=== PATIENT | female | born 1940 | race Caucasian/White ===

== ENCOUNTER 2019-09-30 05:51 | Inpatient (IN) | payer MEDICARE, BC, OTHER, SELFPAY ==
[2019-09-20 12:39] VITALS: BMI 45.3
[2019-09-30] VITALS (15 sets, daily range): BP systolic 110–167; BP diastolic 45–94; PULSE 69–93; RESP 11–21; TEMP 35.8–36.9; O2SAT 88–96; BMI 44.4
--- NOTE | 2019-09-30 06:59 | DI.RAD.S_ITS ---
PROCEDURE: XR KNEE RT 1TO2V INDICATIONS: post op TECHNIQUE: 2 view(s) of the knee acquired. COMPARISON: None. FINDINGS: Bones: Patient is status post knee joint arthroplasty. Hardware components are in expected positions. Visualized bony structures are intact. Soft tissues: Overlying postoperative changes are noted. IMPRESSION: Normal postoperative alignment after right total knee arthroplasty. Dictated by: Jacques Frost M.D. on 09/30/2019 at 10:57 Approved by: Jacques Frost M.D. on 09/30/2019 at 10:57
[2019-09-30] MEDS: LACTATED RINGERS 1,000 ML 42 ML IV (07:30)
[2019-09-30] MEDS: PREGABALIN 75 MG CAPSULE PO (07:34)
[2019-09-30] MEDS: ACETAMINOPHEN 325 MG TABLET 975 MG PO (07:34)
[2019-09-30] MEDS: MELOXICAM 7.5 MG TABLET 15 MG PO (07:35)
[2019-09-30] MEDS: CEFAZOLIN 2 GM/100 ML FROZ.PIGGY IV (07:55)
--- NOTE | 2019-09-30 08:00 | PM.PREOP ---
Pre-operative Note Interval Note History & Physical reviewed/Exam performed by Physician: Yes Changes to H&P: No
--- NOTE | 2019-09-30 08:01 | PM.OP.1 ---
Operative Date/Time/Diagnoses Date of procedure: 09/30/19 Time of procedure: 09:50 Pre-op diagnosis: Right knee osteoarthritis Post-op diagnosis: same Procedure & Clinicians Procedure: Right total knee replacement Same procedure as scheduled: Yes Indications: The patient has had progressively worsening right knee pain with radiographic changes consistent with arthritis. Non-operative management has failed and the patient has requested total knee replacement. The risks, benefits and alternatives to surgery were discussed with the patient prior to proceeding. Risks discussed included, but were not limited to, failure to relieve pain, stiffness, infection, nerve damage, deep venous thrombosis, pulmonary embolism, stroke, coma, heart attack, permanent paralysis and , as well as the potential need for eventual revision of the prosthetic. Surgeon: Phil Sloan Chief Of Internal Medicine: Reema Hernández Click Yes if Unassisted: No Anesthesia Type: General, Spinal and Local Operative Notes Findings: Severe tricompartmental osteoarthritis Closure Type: primary Specimen(s): none sent Prosthetic devices, grafts, tissues, transplants, or devices: Implants used in this procedure were manufactured by the [employer] and included the BCS II Journey total knee replacement with a size 5 right cobalt chromium femoral component, a size 4 right non porous tibial base plate, a 9 mm cross-linked polyethylene tibial insert and a 35 mm oval Evy II patella. Applied: implant(s) Estimated Blood Loss (mL): 25 Blood products transfused: none Tourniquet time (min): 55 Procedure in detail: The patient was seen in the pre-operative area, where the patient identified the right knee as the operative site and this was marked with my initials. The patient received pre-operative antibiotics, and was taken to the operating room and placed on the operative table in the supine position. After satisfactory anesthesia, a night time babysitter out was performed. The right leg was encircled with a tourniquet about the proximal thigh, and the leg was prepared from the toes to the tourniquet with ChloroPrep in the usual fashion and draped through sterile drapes. The leg was elevated and exsanguinated with Eschmark bandage and the tourniquet inflated to 250 mmHg pressure. The knee was approached through an approximately 18 cm incision centered over the patella and carried into the knee through a medial parapatellar arthrotomy. The anterior osteophytes and soft tissues were removed. The rotational landmarks of La Luz's line and the transepicondylar axis were marked on the femur with electrocautery, and intramedullary guide holes for the femur and tibia were created. The distal femoral cut was made in 6 degrees of valgus using the intramedullary guide at the primary cut setting. The proximal tibial cut was then made using the intramedullary guide, taking 9 mm of bone off the less involved side. The extension gap was checked and the rotation of the femoral component confirmed with the gap balancing system. The anterior, posterior and chamfer cuts were then made. The posterior osteophytes and soft tissues were then removed. The posterior capsule was injected with part of a mixture of 60 ml 0.25% Marcaine mixed with 20 ml Exparel and 4 mg of morphine for post-operative pain control. The remainder of this mixture was injected into the capsule and subcutaneous tissues during cement curing. The tibia was prepared with the rotation set by an extramedullary guide. Trial tibial and femoral components were then placed and the intercondylar notch cut through the femoral trial. Range of motion was 0-135 degrees, with good stability throughout the range. The patella was then cut to accommodate the patellar prosthetic. There was no need for a lateral release. The trials were then removed, and the femoral hole plugged with a bone plug. The bone was prepared with pulsatile lavage, and dried with a sponge. Cement was applied and the final prosthetics placed. Excess cement was removed during and after cement curing. After confirming there was no extruded cement posteriorly, the final tibial insert was placed. The knee was copiously irrigated and the tourniquet deflated. Hemostasis was obtained. The capsule was closed with interrupted # 2 polyester suture. The subcutaneous layer was closed with 3-0 Vicryl, and the skin with a running 3-0 V-Lock suture and SteriStrips. An Aquacel Ag dressing was applied and the patient was taken to recovery having tolerated the procedure well. Complications: none Post-operative Condition: stable Disposition: PACU Plan for aftercare: The patient will be maintained on a standard total knee replacement protocol with weight bearing as tolerated. The patient will receive aspirin and sequential compression devices for DVT prophylaxis. The patient will be discharged home when safe for the home environment.
--- NOTE | 2019-09-30 08:42 | SUR.OPER ---
Supine on padded OR bed. Pillow under head, arms secured on padded armboards <90 degree abduction. Safety belt across torso. Non-operative leg secured with tape over blanket over lower leg. Operative leg secured in DeMayo/Marques positioner. Foam padded brace at thigh of operative leg.
[2019-09-30] MEDS: MORPHINE 4 MG/ML INJ INJ (08:47)
[2019-09-30] MEDS: BUPIVACAINE 0.25% W/ EPI (PF) 10 ML VIAL 60 ML INJ (08:47)
[2019-09-30] MEDS: BUPIVACAINE LIPOSOME 266 MG/20 ML VIAL INJ (08:48)
[2019-09-30] MEDS: LACTATED RINGERS 1,000 ML 125 ML IV (11:08)
--- NOTE | 2019-09-30 14:25 | PT.IIE ---
Current Diagnoses Unilateral primary osteoarthritis, right knee (09/30/19) Surgery Performed Operation Date: 09/30/19 07:45 Actual Procedures p Total Knee Arthroplasty(Right) - Phil Sloan MD Surgical History (Last Updated 09/20/19 @ 13:[address] RN) H/O: hysterectomy (Acute) History of colostomy (Acute ~12/2014) Hx of cholecystectomy (Acute) Medical History (Last Updated 09/20/19 @ 13:[address] RN) Anxiety (Acute) CAD (coronary artery disease) (Acute) Colon polyps (Acute) COPD (chronic obstructive pulmonary disease) (Acute) CVA (cerebral vascular accident) (Acute ~1976) Cyst (Acute ~1958) Depression (Acute) Diverticulitis of intestine with perforation (Acute) GERD (gastroesophageal reflux disease) (Acute) Glaucoma (Acute) H/O coronary angiogram (Acute) HLD (hyperlipidemia) (Acute) HTN (hypertension) (Acute) Hypothyroid (Acute) IBS (irritable bowel syndrome) (Acute) Myocardial infarction (Acute ~2004) Osteoarthritis (Acute) Pulmonary embolism, bilateral (Acute ~12/2014) RLS (restless legs syndrome) (Acute) Physical Therapy Inpatient Evaluation/Re-Eval M1 PT/OT-IP Prior Functional Status Start: 09/30/19 12:42 Freq: NEEDED Status: Active Protocol: Document 09/30/19 13:54 AW (Rec: 09/30/19 14:25 AW [id number]) Medical Review Prior Functional Status Medical History Reviewed Yes Communication WNL Mobility and Gait Independent without assistive device but with limited distance (1/2 block or less) secondary to shortness of breath and pain. Activities of Daily Living and IADL's Pt used a long-handled shoe horn for shoes and her helped her with socks. She was otherwise independent with dressing, showering, toileting. Social History Household Members spouse Living Arrangements House Number of Floors (Floors) Two Floors Number of Stairs To Enter/Railing? 6 threshhold to enter. Pt stays on the entry writer with no need to access the second floor. Home Environment Standard Height Toilet,Walk in Shower Home Equipment Front Wheel Walker,Straight Cane,Raised Toilet Seat w/ Armrests,Long Handled Sponge Employment Status Retired Additional Social History Comment Pt lives with her spouse, Usman, who is available 03/04 and able to provide assistance. Her daughter, Gaye, also lives nearby and checks in frequently. M2 PT-IP Current Condition Start: 09/30/19 12:42 Freq: NEEDED Status: Active Protocol: Document 09/30/19 13:54 AW (Rec: 09/30/19 14:25 AW [id number]) Physical Therapy Current Condition Current Condition Evaluation Date 09/30/19 Treatment Diagnosis s/p R TKA Onset Date 09/30/19 Precautions Other Precautions history of PE, DVT Weight Bearing Status Weight Bearing Status Weight Bear as Tolerated M3 PT-IP Subjective Start: 09/30/19 12:42 Freq: NEEDED Status: Active Protocol: Document 09/30/19 13:54 AW (Rec: 09/30/19 14:25 AW [id number]) Subjective Physical Therapy Visit Type Visit Start Time 12:30 Visit Stop Time 13:51 Total Visit Minutes 36 Notes Split visit due to nursing request to assist with first transfer. Number of BUS AIDE Visits 0 Physical Therapy Visit Comments Patient Comments Pt willing to work with therapy. Patient Goals Pt hopes to discharge home with spouse assist Therapy Pain Assessment Pain When Pain Assessed During Mobility Pain Present Pain Present Pain Reported Location right knee Intensity 7 Scale Used 3/10 at rest; 7/10 with mobility Pain Management Techniques Apply Cold,Re-positioning, Timing of Activity with Medications M4 PT-IP Mobility and Gait Start: 09/30/19 12:42 Freq: NEEDED Status: Active Protocol: Document 09/30/19 13:54 AW (Rec: 09/30/19 14:25 AW [id number]) PT-Bed Mobility Assessment Supine to Sit Supine to Sit Standby Assistance Sit to Supine Sit to Supine Standby Assistance Scooting Scooting to Edge of Bed Standby Assistance PT-Transfer Assessment Sit to and From Stand Sit to and from Stand Contact Guard Assistance,1 Person Assistance,Use of Upper Extremities Equipment Transfer Assistive Device Gait Belt,Front Wheeled Walker Orthotic/Prosthetic Devices or Brace: No Transfers Transfer Destination Bed,Chair Transfer Technique ambulated with FWW Transfer Ability Level of Assist Contact Guard Assistance Comments Mobility Comments On initial contact, pt had decreased AROM of her right ankle and great toe along with associated dull sensation in the same distribution. She was able to move her legs out of bed independently and complete supine to sit from flat bed SBA. She stood with FWW CGA, exiting the bed to her right side and pivot transferred to [facility]. On second contact, pt exited the bed same direction and walked around the bed to the chair set up by the window CGA. She reported lightheadedness and a heavy sensation in her right leg. She transferred to the chair CGA for assessment of BP as noted below. Once symptoms subsided, she ambulated back to the left side of the bed with FWW CGA and completed sit to supine SBA. Pt was repositioned in the bed with SCD's to bilateral calves, supplemental O2 via NC, bed alarm on for safety, and call light within reach. Pt asked to speak with the RN regarding pain medication which was communicated to the NAC. Supine prior to activity: BP 129/74 HR 95 After 20 feet ambulation: BP 144/123 HR 111 Upon return to bed: BP 137/79 HR 98 Gait Assessment Gait Gait Assistance Required: Contact Guard Assist Distance (Feet) 20 Able to Maintain Weight Bearing Status Yes During Gait Assistive Devices Assistive Device Gait Belt,Front Wheeled Walker Orthotic/Prosthetic Devices or Brace: No Gait Deviations General Gait Pattern Antalgic,Decreased Stride Length,Decreased Feet Clearance,Flexed Trunk,Wide Based Gait Factors Limiting Gait Function Factors Limiting Gait Function Decreased Activity Tolerance, Decreased Sensation,Decreased Strength,Limited Range of Motion,Pain,Poor Balance Comments Gait Comments Pt ambulated in the room 20 feet + 10 feet using FWW CGA. She reported heavy feeling in her right leg and presented with right foot slap. She was also observed to become short of breath easily with activity . Stair Climbing Assessment Comments Stair Climbing Comments Not assessed due to safety concerns. PT-Balance Assessment Sitting Balance and Reactions Static Sitting Balance Ability Good Dynamic Sitting Balance Ability Good Standing Balance and Reactions Static Standing Balance Ability Fair Dynamic Standing Balance Ability Fair Device Used FWW M5 PT-IP Objective Assessments Start: 09/30/19 12:42 Freq: NEEDED Status: Active Protocol: Document 09/30/19 13:54 AW (Rec: 09/30/19 14:25 AW [id number]) Orientation Orientation/Cognition Level of Alertness Alert Orientation Name,Birthday,Day of Week, Place,Situation Language Function Ability No Deficits Noted Safety Awareness Understands Safety Issues Memory Description No Deficits Noted Gross Range of Motion Upper Extremity ROM Assessment Within Functional Limits Lower Extremity ROM Assessment Right Impaired Strength Upper Extremity Strength Assessment Within Functional Limits Lower Extremity Strength Assessment Bilaterally Impaired Hip B 4/5 Knee L4/5; R 3+/5 Ankle L 4/5; R 3-/5 Coordination Assessment Gross Coordination Gross Coordination WNL Sensation Assessment Sensation Gross Sensation Right LE Impaired Light Touch Impaired Sensation Description Numbness Comments Sensation Comments Pt with dull light touch sensation of R distal leg, ankle, and foot. M6 PT-IP Treatment Start: 09/30/19 12:42 Freq: NEEDED Status: Active Protocol: Document 09/30/19 13:54 AW (Rec: 09/30/19 14:25 AW [id number]) Physical Therapy Treatment Exercises Exercises Ankle Pumps,Quad Sets,Heel Slides,Passive Knee Extension Hang Education Education Provided Precautions,Weight Bearing Status,Post-Op Packet,Safety Other Treatments Other Treatment Performed Provided education on role of PT, plan of care, post-op exercises, weightbearing status, and safe use of FWW. M7 PT-IP Assessment and Plan Start: 09/30/19 12:42 Freq: NEEDED Status: Active Protocol: Document 09/30/19 13:54 AW (Rec: 09/30/19 14:25 AW [id number]) PT Summary Assessment and Plan Potential Rehabilitation Potential Good Status of Condition at Evaluation Evolving Summary Impairments Pain,ROM,Strength,Balance, Sensation,Transfers,Gait, Activity Tolerance Assessment Summary Jenny is an 79 yo woman seen for PT evaluation on POD0 following R TKA. At baseline, she mobilizes without assistive device but admits to limited distance (1/2 block) due to shortness of breath and knee pain. Her helps her with some lower body dressing tasks but she is otherwise independent with ADLs. On evaluation, Jenny required no more than CGA for all mobilities and was safe with FWW. PT anticipates she will meet the functional goals of this plan of care and be appropriate for discharge to home with spouse assist and outpatient PT once medically cleared. Goals Bed Mobility Goal Independent Transfer Goal Independent,Front Wheeled Walker Gait Goal Independent,Front Wheel Walker Gait Distance 150 Other Goals - up/down platform step with FWW CGA for safe entry to home . Days to Meet Goals 2 Frequency of Treatment Frequency Of Treatment Twice a Day Treatment Plan Physical Therapy Treatment Plan Bed Mobility Training,Transfer Training,Gait Training, Therapeutic Exercise,Balance Retraining,Post Op Education, Discharge Planning,Hot or Cold Pack,Neuromuscular Re-ed, Manual Therapy Other Recommendations and Next Treatment progress gait distance; assess Focus safety with platform step; review ther ex and weightbearing status Recommendations To Nursing Amount of Assist Needed 1 Person Assist Discharge Recommendations PT Discharge Recommendations Home with Assistance, Outpatient PT
[2019-09-30] MEDS: ACETAMINOPHEN 325 MG TABLET 650 MG PO ×2 (14:43→21:30)
[2019-09-30] MEDS: OXYCODONE IR 5 MG TABLET PO ×2 (15:24→21:31)
[2019-09-30] MEDS: ATORVASTATIN 20 MG TABLET PO (19:18)
[2019-09-30] MEDS: BUSPIRONE 5 MG TABLET 20 MG PO (19:19)
[2019-09-30] MEDS: VALSARTAN 80 MG TABLET 40 MG PO (19:20)
[2019-09-30] MEDS: PANTOPRAZOLE 20 MG TABLET PO (19:25)
[2019-09-30] MEDS: RIVAROXABAN 10 MG TABLET 20 MG PO (19:25)
[2019-09-30] MEDS: METOPROLOL IR 25 MG TABLET PO (21:30)
[2019-09-30] MEDS: TRAVOPROST OPHTH DROPS 1 DROPS EYE-BOTH (21:31)
[2019-09-30] MEDS: DOCUSATE 100 MG CAPSULE PO (21:31)
[2019-09-30] MEDS: TIMOLOL 0.5% OPHTH 1 DROPS EYE-BOTH (21:32)
[2019-10-01] MEDS: OXYCODONE IR 5 MG TABLET PO ×8 (00:44→21:53)
[2019-10-01] MEDS: LACTATED RINGERS 1,000 ML 125 ML IV (02:44)
--- NOTE | 2019-10-01 05:27 | PC.NURSE ---
Pt alert and oriented x4. 1PA to BSC. Pain controlled with PRN oxy. Pt refusing scheduled ibuprofen. Voiding to BSC without issues. Right knee post op incision with aquacell dressing clean dry and intact. No complaints at this time.
[2019-10-01 05:30] VITALS: BP 124/71; PULSE 71; RESP 12; TEMP 36.5; O2SAT 96
[2019-10-01 07:09] LABS: Hematocrit 35.6 % (36-46); Hemoglobin 11.9 g/dL (12.0-16.0)
--- NOTE | 2019-10-01 07:43 | PM.PNPO.1 ---
Subjective Subjective Date Patient Seen: 10/01/19 Time Patient Seen: 07:43 Interval history: The patient reports good pain control except for when she tries to weightbear when the pain becomes significant. Exam Vital Signs (past 8 hours): - 10/01/19 05:30 Temperature 97.7 F Pulse Rate 71 Respiratory Rate 12 Blood Pressure 124/71 Pulse Oximetry 96 Oxygen Delivery Method Nasal Cannula Oxygen Flow Rate 2.5 Narrative Exam Narrative: Right knee wound is dressed with no drainage on the bandage. Calf is soft. Light touch and motion are intact in the right lower extremity. Objective Labs Result Diagrams: 10/01/19 06:55 Labs: Laboratory Results - last 24 hr 10/01/19 06:55 Hgb 11.9 L Hct 35.6 L Assessment & Plan Post-op Postoperative Procedures: Procedures Operation Date: 09/30/19 07:45 Actual Procedures Side Surgeon p Total Knee Arthroplasty Right Phil Sloan MD Postoperative day: 1 Postoperative status: doing well and anemia Postoperative status narrative: The patient is stable postop day 1 status post right total knee replacement. She does have a mild post hemorrhagic anemia as expected. She has a history of a previous blood clot and will be restarted on her Xarelto. She is refusing to use ibuprofen because of the Xarelto. She is in poor general physical condition and obese and will need significant therapy prior to discharge. Postoperative plan: routine post-op care and ambulate Postoperative plan narrative: We will continue physical therapy to work on getting her ready to go home. I anticipate her discharge potentially tomorrow but likely in 2 days. As noted above she will be on Xarelto which we will use for both her prior clot and as DVT prophylaxis. I have stopped the ibuprofen. Her anemia is not significant enough to require transfusion. Time Spent With Patient Time with patient: less than 15 minutes
[2019-10-01] MEDS: TIMOLOL 0.5% OPHTH 1 DROPS EYE-BOTH ×2 (09:02→21:54)
[2019-10-01] MEDS: DOCUSATE 100 MG CAPSULE PO ×2 (09:04→21:51)
[2019-10-01] MEDS: ACETAMINOPHEN 325 MG TABLET 650 MG PO ×3 (09:04→21:52)
[2019-10-01] MEDS: POLYETHYLENE GLYCOL 3350 17 GM POWD.PACK PO (09:05)
[2019-10-01] MEDS: METOPROLOL IR 25 MG TABLET PO ×2 (09:05→21:51)
[2019-10-01] MEDS: LEVOTHYROXINE 50 MCG TABLET PO (09:05)
[2019-10-01] MEDS: ESCITALOPRAM 10 MG TABLET 20 MG PO (09:08)
[2019-10-01 09:11] VITALS: O2SAT 96
[2019-10-01] MEDS: BUSPIRONE 5 MG TABLET 10 MG PO (09:17)
--- NOTE | 2019-10-01 09:57 | PC.NURSE ---
Addendum entered by Gladys Wolf R.N. 10/01/19 15:28: pt states she normally has BM every 3 days at home and takes a probiotic at home. Evening Rn to pass on non-urgent to have a probiotic ordered and Vitamin D3 4,000 IU OD as pt takes this at home and requested to have reordered, Okay with not having today. Original Note: Day Shift- Pt A&OX4, able to make needs known using call light. OOB with 1PA using walker, ambulated fair to BSC then to chair around 0920. Voiding qs, no flatus passed yet post op. Right knee aquacel dressing CDI, scant spot shadowing to distal end of dressing, librado wrap on. CMS+, pt does report causing right knee pain when performing ankle pump exercise using right ankle. Pt reports 1/10 aching pain to right knee with rest and aching, sharp 7-8/10 pain with movement. Pain settles when pt in resting position. Pain management plan discussed. reported to Dr. Sloan this AM that pt wasn't taking scheduled Ibuprofen, Dr. Sloan Discontinued Ibuprofen. O2 NC removed, O2 sat level 90-93% on RA, pt states she has borderline COPD, This racebook writer did notice pt having audible expiratory wheeze with pursed lip breathing after ambulating from BSC on right side of bed over to chair on left side of bed. O2 sat 91% on RA.
--- NOTE | 2019-10-01 10:38 | CM.DANOTE ---
DCP/Assessment: Reviewed chart. Patient is a 79yr old female admitted to [facility] for right TKA peformed on 10-01-[address] Sloan. PCP not listed. Primary payor is 1)Medicare 2)[facility]. Met with patient and spouse explained CM/SW role. Patient reports that she plans to go home when medically stable. Spouse/Ashvin at bedside and confirms plan. Therapy following patient. Patient has all needed DME and outpatient therapy appointment scheduled. There are no identified d/c planning needs. P: Home when stable. NENA Meade Discharge Planning/Care Management CM Discharge Assessment Start: 10/01/19 10:36 Freq: Status: Active Protocol: Document 10/01/19 10:36 KJS (Rec: 10/01/19 10:38 KJS [id number]) Discharge Planning Assessment Assigned Sterilization Tech NENA Meade Contact Information Ashvin Moseley (spouse) Advance Directives? No History Provided By Patient,Medical Record Prior Living Arrangements House Household Members spouse Type of transporation used prior to Relies on Others admit Independent with ADL's No Is patient alert and oriented? Yes Caregiver for Another No DME Already Rented / Owned FWW / Walker,Bedside Commode Patient/Family Preference OP PT Therapy Discharge Plan Home Transportation Arrangement Family to provide transport home. Whiteboard Updated in Patient Room with Yes name and ext. # of Sterilization Tech Review Status In Process Next Review Type Continued Stay Review Pre-Anesthesia Assessment Start: 09/20/19 12:38 Freq: Status: Complete Protocol: Document 09/20/19 12:39 CAB (Rec: 09/20/19 14:00 CAB [id number]) Pre-Anesthesia Assessment PAC Comment Per , PCP, Cardiology clearance completed over 3 weeks ago, surgeon has everything. Surgeon requesting anesthesia review. Left message for [facility] to fax over records for review Patient Information Reviewed Via Phone Assessment Assessment Completed With Spouse Comment Pt gave verbal approval for spouse to complete PAC Primary Care Provider Cosme Beckwith Medical Clearance Received Yes Seen Specialist in Last 12 Months Yes Specialist Seen Glass Mechanic,Orthopedist Primary Language Georgian Windows Systems Engineer Required No Height 152.4 cm Weight 105.233 kg Body Mass Index (BMI) 45.3 Hearing Ability Normal Visual Assist Magnifying Glass Dentition Type Teeth, Natural Present,Dental Implants Barriers to Learning None Other Aids No Hx Anesthesia Reactions No Hx Family Anesthesia Reaction No Hx Malignant Hyperthermia No Hx Blood Transfusions Yes: unsure, thinks w/ perforated diverticulitis 2014 Anesthesia Review Requested No alcohol intake former Alcohol Intake Frequency Other: Stopped r/t medications Smoking Status Former smoker Tobacco type cigarettes how long ago did patient quit smoking Quit 1977 Substance Use Type does not use Pain Present Pain Reported Musculoskeletal Symptoms Abnormal Gait,Difficulty Walking,Joint Pain History of Falling (Recent or History of No ) Patient is completely paralyzed or No completely immobile Mental Status Oriented to own ability Is patient on oxygen? No Does patient have RYAN/SOB No Hx Sleep Apnea No Currently Taking a Beta Natasha Yes: Metoprolol Can You Climb a Flight of Stairs Without No SOB Hx Chest Pain No Hx SOB Yes: 2014 r/t PE, none since Hx Syncope or Dizziness No Anti-Coagulant Therapy Yes: Xarelto-advised to hold 3 day prior per PCP Has a Glass Mechanic Yes: Dr. Hudson Cardiac Testing Yes: Echo Hx Pacemaker/ICD No Pacemaker Rep Required? No Cardiac Clearance Received Yes Diet Type At Home Regular dysphagia Yes: Occasionally w/solids Bladder Pattern Frequency Urinary Catheter Present No Hx Urinary Self Catheterization No Diabetes No Patient No Lactating No Hx Drug Resistant Organism No Presence of External or Internal Medical No Devices Have you traveled outside the [place] in the last 30 days? Marital Status Lives With spouse Prior Living Arrangements House Number of Floors (Floors) Two Floors Support System Spouse Does the Patient Have Assistance After Yes Surgery Patient Discharge Plan Description Return Home Comment Pt advised 3 day length of stay per surgeon Advance Directives? No
--- NOTE | 2019-10-01 10:58 | PT.IPTN ---
Current Diagnoses Unilateral primary osteoarthritis, right knee (09/30/19) Surgery Performed Operation Date: 09/30/19 07:45 Actual Procedures p Total Knee Arthroplasty(Right) - Phil Sloan MD Physical Therapy Treatment Note M2 PT-IP Current Condition Start: 09/30/19 12:42 Freq: NEEDED Status: Active Protocol: Document 09/30/19 13:54 AW (Rec: 09/30/19 14:25 AW [id number]) Physical Therapy Current Condition Current Condition Evaluation Date 09/30/19 Treatment Diagnosis s/p R TKA Onset Date 09/30/19 Precautions Other Precautions history of PE, DVT Weight Bearing Status Weight Bearing Status Weight Bear as Tolerated M3 PT-IP Subjective Start: 09/30/19 12:42 Freq: NEEDED Status: Active Protocol: Document 10/01/19 10:58 CLB (Rec: 10/01/19 13:35 CLB [id number]) Subjective Physical Therapy Visit Type Type Treatment Note Visit Start Time 10:58 Visit Stop Time 11:39 Total Visit Minutes 41 Number of PRESSURE DISPATCHER Visits 1 Physical Therapy Visit Comments Patient Comments Pt willing to work with therapy. Patient Goals Pt hopes to discharge home with spouse assist Therapy Pain Assessment Pain When Pain Assessed During Mobility Pain Present Pain Present Pain Reported Location right knee Intensity 5 Scale Used Numeric (1 - 10) Pain Management Techniques Apply Cold,Re-positioning, Timing of Activity with Medications M4 PT-IP Mobility and Gait Start: 09/30/19 12:42 Freq: NEEDED Status: Active Protocol: Document 10/01/19 10:58 CLB (Rec: 10/01/19 13:35 CLB [id number]) PT-Bed Mobility Assessment Supine to Sit Supine to Sit Standby Assistance Sit to Supine Sit to Supine Standby Assistance Scooting Scooting to Edge of Bed Standby Assistance PT-Transfer Assessment Sit to and From Stand Sit to and from Stand Contact Guard Assistance,1 Person Assistance,Use of Upper Extremities Equipment Transfer Assistive Device Gait Belt,Front Wheeled Walker Orthotic/Prosthetic Devices or Brace: No Transfers Transfer Destination Bed,Chair,Toilet Transfer Technique ambulated with FWW Transfer Ability Level of Assist Contact Guard Assistance Comments Mobility Comments Pt required SBA for bed mobility to EOB, pt was able to straighten, lift and control RLE OOB. Pt required CGA for sit<>stand. Pt able to stand at sink to wash hands with good standing balance and SBA. Pt able to perform own pericare after use of toilet. CG training with Usman with him providing pt CGA for sit<>stand from bed and toilet . Pt's provide appropriate asssit and cues for hand placement. Pt left in chair with all needs within reach and present. Gait Assessment Gait Gait Assistance Required: Standby Assistance,Contact Guard Assist Distance (Feet) 40 Able to Maintain Weight Bearing Status Yes During Gait Assistive Devices Assistive Device Gait Belt,Front Wheeled Walker Orthotic/Prosthetic Devices or Brace: No Gait Deviations General Gait Pattern Antalgic,Decreased Stride Length,Decreased Feet Clearance,Flexed Trunk,Wide Based Gait Factors Limiting Gait Function Factors Limiting Gait Function Decreased Activity Tolerance, Decreased Sensation,Decreased Strength,Limited Range of Motion,Pain,Poor Balance Comments Gait Comments Pt ambulate from right side of bed to BR then to sink. After trialing stairs pt didn't feel as if she could ambulate further due to discomfort of RLE. Pt was able to ambulate SBA-CGA. Stair Climbing Assessment Evaluation Level of Assist On Stairs Contact Guard Assistance Devices Stair Climbing Assistive Devices Front Wheel Walker Technique/Endurance Stair Climbing Direction Ascend and Descend Stair Climbing Technique Step to Step Number of Steps Climbed 1 Stair Climbing Set # Repetitions (reps) 2 Comments Stair Climbing Comments Pt performed 1 platform step with therapist for demonstration. Pt able to assist pt on platform step up/down with CGA and cues for sequencing. PT-Balance Assessment Sitting Balance and Reactions Static Sitting Balance Ability Good Dynamic Sitting Balance Ability Good Standing Balance and Reactions Static Standing Balance Ability Fair Dynamic Standing Balance Ability Fair Device Used FWW M5 PT-IP Objective Assessments Start: 09/30/19 12:42 Freq: NEEDED Status: Active Protocol: Document 09/30/19 13:54 AW (Rec: 09/30/19 14:25 AW [id number]) Orientation Orientation/Cognition Level of Alertness Alert Orientation Name,Birthday,Day of Week, Place,Situation Language Function Ability No Deficits Noted Safety Awareness Understands Safety Issues Memory Description No Deficits Noted Gross Range of Motion Upper Extremity ROM Assessment Within Functional Limits Lower Extremity ROM Assessment Right Impaired Strength Upper Extremity Strength Assessment Within Functional Limits Lower Extremity Strength Assessment Bilaterally Impaired Hip B 4/5 Knee L4/5; R 3+/5 Ankle L 4/5; R 3-/5 Coordination Assessment Gross Coordination Gross Coordination WNL Sensation Assessment Sensation Gross Sensation Right LE Impaired Light Touch Impaired Sensation Description Numbness Comments Sensation Comments Pt with dull light touch sensation of R distal leg, ankle, and foot. M6 PT-IP Treatment Start: 09/30/19 12:42 Freq: NEEDED Status: Active Protocol: Document 10/01/19 10:58 CLB (Rec: 10/01/19 13:35 CLB [id number]) Physical Therapy Treatment Exercises Exercises Ankle Pumps,Gluteal Sets,Quad Sets,Heel Slides Education Education Provided Weight Bearing Status,Post-Op Packet,Safety M7 PT-IP Assessment and Plan Start: 09/30/19 12:42 Freq: NEEDED Status: Active Protocol: Document 10/01/19 10:58 CLB (Rec: 10/01/19 13:35 CLB [id number]) PT Summary Assessment and Plan Potential Rehabilitation Potential Good Status of Condition at Evaluation Evolving Summary Impairments Pain,ROM,Strength,Balance, Sensation,Transfers,Gait, Activity Tolerance Assessment Summary Pt improving with all mobility , is able to appropriately assist pt with CGA for sit<>stand, gait and stair climbing, pt's give cues for hand placement and feeling chair on back of legs before sitting. Pt will be able to return home with as he is able to assist pt. Goals Bed Mobility Goal Independent Transfer Goal Independent,Front Wheeled Walker Gait Goal Independent,Front Wheel Walker Gait Distance 150 Other Goals - up/down platform step with FWW CGA for safe entry to home . Days to Meet Goals 2 Frequency of Treatment Frequency Of Treatment Twice a Day Treatment Plan Physical Therapy Treatment Plan Bed Mobility Training,Transfer Training,Gait Training, Therapeutic Exercise,Balance Retraining,Post Op Education, Discharge Planning,Hot or Cold Pack,Neuromuscular Re-ed, Manual Therapy Other Recommendations and Next Treatment ther ex, gait. Focus Recommendations To Nursing Amount of Assist Needed 1 Person Assist Discharge Recommendations PT Discharge Recommendations Home with Assistance, Outpatient PT
[2019-10-01 12:00] VITALS: BP 119/53; PULSE 74; RESP 18; TEMP 36.9; O2SAT 92
--- NOTE | 2019-10-01 14:12 | PT.IPTN ---
Current Diagnoses Unilateral primary osteoarthritis, right knee (09/30/19) Surgery Performed Operation Date: 09/30/19 07:45 Actual Procedures p Total Knee Arthroplasty(Right) - Phil Slona MD Physical Therapy Treatment Note M2 PT-IP Current Condition Start: 09/30/19 12:42 Freq: NEEDED Status: Active Protocol: Document 09/30/19 13:54 AW (Rec: 09/30/19 14:25 AW [id number]) Physical Therapy Current Condition Current Condition Evaluation Date 09/30/19 Treatment Diagnosis s/p R TKA Onset Date 09/30/19 Precautions Other Precautions history of PE, DVT Weight Bearing Status Weight Bearing Status Weight Bear as Tolerated M3 PT-IP Subjective Start: 09/30/19 12:42 Freq: NEEDED Status: Active Protocol: Document 10/01/19 14:12 CLB (Rec: 10/01/19 15:14 CLB [id number]) Subjective Physical Therapy Visit Type Type Treatment Note Visit Start Time 14:12 Visit Stop Time 14:37 Total Visit Minutes 25 Number of CASING WORKER Visits 2 Physical Therapy Visit Comments Patient Comments Pt willing to work with therapy. Therapy Pain Assessment Pain When Pain Assessed During Mobility Pain Present Pain Present Pain Reported Location right knee Intensity 7 Scale Used Numeric (1 - 10) Pain Management Techniques Apply Cold,Re-positioning, Timing of Activity with Medications M4 PT-IP Mobility and Gait Start: 09/30/19 12:42 Freq: NEEDED Status: Active Protocol: Document 10/01/19 14:12 CLB (Rec: 10/01/19 15:14 CLB [id number]) PT-Bed Mobility Assessment Supine to Sit Supine to Sit Standby Assistance Sit to Supine Sit to Supine Standby Assistance Scooting Scooting to Edge of Bed Standby Assistance PT-Transfer Assessment Sit to and From Stand Sit to and from Stand Contact Guard Assistance,1 Person Assistance,Use of Upper Extremities Equipment Transfer Assistive Device Gait Belt,Front Wheeled Walker Transfers Transfer Destination Bed Transfer Technique ambulated with FWW Transfer Ability Level of Assist Contact Guard Assistance Comments Mobility Comments Pt is SBA for bed mobility, and CGA for sit-stand. Pt requires cues for hand placement on bed for safety. Pt left in bed with all needs within reach and SCD/s on. Gait Assessment Gait Gait Assistance Required: Standby Assistance,Contact Guard Assist Distance (Feet) 150 Able to Maintain Weight Bearing Status Yes During Gait Assistive Devices Assistive Device Gait Belt,Front Wheeled Walker Orthotic/Prosthetic Devices or Brace: No Gait Deviations General Gait Pattern Antalgic,Decreased Stride Length,Decreased Feet Clearance,Flexed Trunk,Wide Based Gait Factors Limiting Gait Function Factors Limiting Gait Function Decreased Activity Tolerance, Decreased Sensation,Decreased Strength,Limited Range of Motion,Pain,Poor Balance Comments Gait Comments Pt increased ambulation to ~ 150ft with FWW/CGA. Pt reports pain of 7/10 during ambulation using step through gait pattern with good foot clearance. M5 PT-IP Objective Assessments Start: 09/30/19 12:42 Freq: NEEDED Status: Active Protocol: Document 09/30/19 13:54 AW (Rec: 09/30/19 14:25 AW [id number]) Orientation Orientation/Cognition Level of Alertness Alert Orientation Name,Birthday,Day of Week, Place,Situation Language Function Ability No Deficits Noted Safety Awareness Understands Safety Issues Memory Description No Deficits Noted Gross Range of Motion Upper Extremity ROM Assessment Within Functional Limits Lower Extremity ROM Assessment Right Impaired Strength Upper Extremity Strength Assessment Within Functional Limits Lower Extremity Strength Assessment Bilaterally Impaired Hip B 4/5 Knee L4/5; R 3+/5 Ankle L 4/5; R 3-/5 Coordination Assessment Gross Coordination Gross Coordination WNL Sensation Assessment Sensation Gross Sensation Right LE Impaired Light Touch Impaired Sensation Description Numbness Comments Sensation Comments Pt with dull light touch sensation of R distal leg, ankle, and foot. M6 PT-IP Treatment Start: 09/30/19 12:42 Freq: NEEDED Status: Active Protocol: Document 10/01/19 14:12 CLB (Rec: 10/01/19 15:14 CLB [id number]) Physical Therapy Treatment Exercises Exercises Ankle Pumps,Gluteal Sets,Quad Sets,Heel Slides,Straight Leg Raises,Short Arc Quads Education Education Provided Weight Bearing Status,Safety M7 PT-IP Assessment and Plan Start: 09/30/19 12:42 Freq: NEEDED Status: Active Protocol: Document 10/01/19 14:12 CLB (Rec: 10/01/19 15:14 CLB [id number]) PT Summary Assessment and Plan Potential Rehabilitation Potential Good Status of Condition at Evaluation Evolving Summary Impairments Pain,ROM,Strength,Balance, Sensation,Transfers,Gait, Activity Tolerance Assessment Summary Pt is able to perform all ther ex including straight leg raise. Pt increased ambulation distance to ~150ft with good quality gait. Pt is SBA for all bed mobility. Pt will be able to d/c home with assist when medically stable. Goals Bed Mobility Goal Independent Transfer Goal Independent,Front Wheeled Walker Gait Goal Independent,Front Wheel Walker Gait Distance 150 Other Goals - up/down platform step with FWW CGA for safe entry to home . Days to Meet Goals 2 Frequency of Treatment Frequency Of Treatment Twice a Day Treatment Plan Physical Therapy Treatment Plan Bed Mobility Training,Transfer Training,Gait Training, Therapeutic Exercise,Balance Retraining,Post Op Education, Discharge Planning,Hot or Cold Pack,Neuromuscular Re-ed, Manual Therapy Other Recommendations and Next Treatment gait, ther ex Focus Recommendations To Nursing Amount of Assist Needed 1 Person Assist Discharge Recommendations PT Discharge Recommendations Home with Assistance, Outpatient PT
[2019-10-01 15:30] VITALS: BP 104/69; PULSE 78; RESP 20; TEMP 36.8; O2SAT 92
[2019-10-01] MEDS: ATORVASTATIN 20 MG TABLET PO (16:13)
[2019-10-01] MEDS: PANTOPRAZOLE 20 MG TABLET PO (16:13)
[2019-10-01] MEDS: VALSARTAN 80 MG TABLET 40 MG PO (16:13)
[2019-10-01] MEDS: BUSPIRONE 5 MG TABLET 20 MG PO (16:14)
[2019-10-01] MEDS: RIVAROXABAN 10 MG TABLET 20 MG PO (16:14)
[2019-10-01 19:34] VITALS: BP 124/65; PULSE 87; RESP 21; TEMP 37.2
[2019-10-01] MEDS: SODIUM CHLORIDE 0.9% FLUSH 10 ML IV ×2 (21:52→23:46)
[2019-10-01] MEDS: TRAVOPROST OPHTH DROPS 1 DROPS EYE-BOTH (21:54)
[2019-10-02 00:01] VITALS: BP 135/71; PULSE 78; RESP 16; TEMP 36.5; O2SAT 95
[2019-10-02] MEDS: OXYCODONE IR 5 MG TABLET PO ×3 (00:53→08:08)
--- NOTE | 2019-10-02 05:04 | PC.NURSE ---
Pt POD 2 s/p total right knee repair. Rates pain 5-6/10 in right knee. Describes as crushing. CMS intact. No increased edema on RLE. Offering PRN oxycodone 5mg with no complaints of uncontrolled pain. Pt up to toilet with 1person SBA. Pt following activity precautions and fall precautions. Using call light for assist. No SOB noted noted overnight. Hx COPD. Yesterday RN noted pursed lip breathing. Pt ordered for o2 to keep >90%. Pt required 1L NC overnight to maintain while sleeping. Lung sounds coarse throughout, no cough. Last BM 09/29. Pt states BM normal pattern is every 3 days. On scheduled and PRN stool softeners. Pt requests order for probiotic and Vit d5. Plan to discharge in 2 days.
[2019-10-02 06:00] VITALS: BP 139/77; PULSE 75; RESP 16; TEMP 36; O2SAT 99
[2019-10-02 07:25] VITALS: BP 128/71; PULSE 89; RESP 18; TEMP 37; O2SAT 90
--- NOTE | 2019-10-02 08:02 | PM.PN.1 ---
Subjective Subjective Date Patient Seen: 10/02/19 Time Patient Seen: 08:02 Interval history: Pain is a 5/10. Denies fever chills. No nausea vomiting. Patient did ambulate with physical therapy yesterday. Patient has her home to assist her. Patient wishes to go home today if safe to do so. Exam Vital Signs (past 8 hours): - 10/02/19 06:00 Temperature 96.8 F L Pulse Rate 75 Respiratory Rate 16 Blood Pressure 139/77 Pulse Oximetry 99 Oxygen Delivery Method Nasal Cannula Oxygen Flow Rate 0 Narrative Exam Narrative: Pleasant 79-year-old female resting comfortably in bed in no apparent distress. Dressing is clean, dry and intact. Neurovascular status is intact distally. Objective Labs Result Diagrams: 10/01/19 06:55 Assessment & Plan Assessment & Plan narrative: Mobilize with physical therapy. Possible discharge this afternoon.
[2019-10-02] MEDS: DOCUSATE 100 MG CAPSULE PO (08:07)
[2019-10-02] MEDS: METOPROLOL IR 25 MG TABLET PO (08:07)
[2019-10-02] MEDS: LEVOTHYROXINE 50 MCG TABLET PO (08:08)
[2019-10-02] MEDS: ACETAMINOPHEN 325 MG TABLET 650 MG PO (08:08)
[2019-10-02] MEDS: ESCITALOPRAM 10 MG TABLET 20 MG PO (08:08)
[2019-10-02] MEDS: SODIUM CHLORIDE 0.9% FLUSH 10 ML IV (08:10)
[2019-10-02] MEDS: TIMOLOL 0.5% OPHTH 1 DROPS EYE-BOTH (08:11)
[2019-10-02] MEDS: BUSPIRONE 5 MG TABLET 10 MG PO (09:04)
--- NOTE | 2019-10-02 09:12 | PT.IPTN ---
Current Diagnoses Unilateral primary osteoarthritis, right knee (09/30/19) Surgery Performed Operation Date: 09/30/19 07:45 Actual Procedures p Total Knee Arthroplasty(Right) - Phil Sloan MD Physical Therapy Treatment Note M2 PT-IP Current Condition Start: 09/30/19 12:42 Freq: NEEDED Status: Active Protocol: Document 09/30/19 13:54 AW (Rec: 09/30/19 14:25 AW [id number]) Physical Therapy Current Condition Current Condition Evaluation Date 09/30/19 Treatment Diagnosis s/p R TKA Onset Date 09/30/19 Precautions Other Precautions history of PE, DVT Weight Bearing Status Weight Bearing Status Weight Bear as Tolerated M3 PT-IP Subjective Start: 09/30/19 12:42 Freq: NEEDED Status: Active Protocol: Document 10/02/19 09:05 LJ (Rec: 10/02/19 09:11 LJ [id number]) Subjective Physical Therapy Visit Type Type Treatment Note Visit Start Time 08:49 Visit Stop Time 09:05 Total Visit Minutes 16 Number of GOLF PROFESSIONAL Visits 3 Physical Therapy Visit Comments Patient Comments Pt willing to work with therapy. Patient Goals Pt hopes to discharge home today with spouse assist Therapy Pain Assessment Pain When Pain Assessed During Mobility Pain Present Pain Present Pain Reported M4 PT-IP Mobility and Gait Start: 09/30/19 12:42 Freq: NEEDED Status: Active Protocol: Document 10/02/19 09:05 LJ (Rec: 10/02/19 09:11 LJ [id number]) PT-Transfer Assessment Sit to and From Stand Sit to and from Stand Standby Assistance,1 Person Assistance,Use of Upper Extremities Equipment Transfer Assistive Device Gait Belt,Front Wheeled Walker Orthotic/Prosthetic Devices or Brace: No Transfers Transfer Destination Chair Transfer Technique ambulated with FWW Transfer Ability Level of Assist Standby Assistance Comments Mobility Comments Pt is SBA for trandfers. Appropriate hand placement and FWW management Gait Assessment Gait Gait Assistance Required: Standby Assistance Distance (Feet) 150 Able to Maintain Weight Bearing Status Yes During Gait Assistive Devices Assistive Device Gait Belt,Front Wheeled Walker Orthotic/Prosthetic Devices or Brace: No Gait Deviations General Gait Pattern Antalgic,Decreased Stride Length,Decreased Feet Clearance,Flexed Trunk,Wide Based Gait Factors Limiting Gait Function Factors Limiting Gait Function Decreased Activity Tolerance, Decreased Sensation,Decreased Strength,Limited Range of Motion,Pain,Poor Balance Comments Gait Comments Pt ambulated in hallway ~150' SBA with cues for keeping FWW closer. Cued for decresing antalgic gait as much as possible. Stair Climbing Assessment Evaluation Level of Assist On Stairs Contact Guard Assistance Devices Stair Climbing Assistive Devices Front Wheel Walker Technique/Endurance Stair Climbing Direction Ascend and Descend Stair Climbing Technique Step to Step Number of Steps Climbed 1 Stair Climbing Set # Repetitions (reps) 2 Comments Stair Climbing Comments Pt performed 1 platform step with therapist for recall of which LE to use upon ascent and descent M5 PT-IP Objective Assessments Start: 09/30/19 12:42 Freq: NEEDED Status: Active Protocol: Document 09/30/19 13:54 AW (Rec: 09/30/19 14:25 AW [id number]) Orientation Orientation/Cognition Level of Alertness Alert Orientation Name,Birthday,Day of Week, Place,Situation Language Function Ability No Deficits Noted Safety Awareness Understands Safety Issues Memory Description No Deficits Noted Gross Range of Motion Upper Extremity ROM Assessment Within Functional Limits Lower Extremity ROM Assessment Right Impaired Strength Upper Extremity Strength Assessment Within Functional Limits Lower Extremity Strength Assessment Bilaterally Impaired Hip B 4/5 Knee L4/5; R 3+/5 Ankle L 4/5; R 3-/5 Coordination Assessment Gross Coordination Gross Coordination WNL Sensation Assessment Sensation Gross Sensation Right LE Impaired Light Touch Impaired Sensation Description Numbness Comments Sensation Comments Pt with dull light touch sensation of R distal leg, ankle, and foot. M6 PT-IP Treatment Start: 09/30/19 12:42 Freq: NEEDED Status: Active Protocol: Document 10/02/19 09:05 DEANDRA (Rec: 10/02/19 09:11 DEANDRA [id number]) Physical Therapy Treatment Exercises Exercises Ankle Pumps,Gluteal Sets,Quad Sets,Heel Slides,Straight Leg Raises,Short Arc Quads Education Education Provided Weight Bearing Status,Safety M7 PT-IP Assessment and Plan Start: 09/30/19 12:42 Freq: NEEDED Status: Active Protocol: Document 10/02/19 09:05 DEANDRA (Rec: 10/02/19 09:11 DEANDRA [id number]) PT Summary Assessment and Plan Potential Rehabilitation Potential Good Status of Condition at Evaluation Evolving Summary Impairments Pain,ROM,Strength,Balance, Sensation,Transfers,Gait, Activity Tolerance Assessment Summary Pt is able to perform all exercises. Pt is SBA for transfers, gait and step. Pt will be able to d/c home with assist when medically stable. Goals Bed Mobility Goal Independent Transfer Goal Independent,Front Wheeled Walker Gait Goal Independent,Front Wheel Walker Gait Distance 150 Other Goals - up/down platform step with FWW CGA for safe entry to home . Days to Meet Goals 2 Frequency of Treatment Frequency Of Treatment Twice a Day Treatment Plan Physical Therapy Treatment Plan Bed Mobility Training,Transfer Training,Gait Training, Therapeutic Exercise,Balance Retraining,Post Op Education, Discharge Planning,Hot or Cold Pack,Neuromuscular Re-ed, Manual Therapy Other Recommendations and Next Treatment gait, ther ex Focus Recommendations To Nursing Amount of Assist Needed Standby Assistance Discharge Recommendations PT Discharge Recommendations Home with Assistance, Outpatient PT
--- NOTE | 2019-10-02 12:17 | P.DS_ITS ---
History of Present Illness History of Present Illness Date Patient Seen: 10/02/19 Time Patient Seen: 12:17 Chief complaint: [id number] Narrative: See progress note Discharge Providers Provider Date of admission: 09/30/19 05:51 Discharge Date: 10/02/19 Consults: 09/30/19 10:58 Consult to Discharge Planning Routine Comment: Consult to Physical Therapy Evaluate & Treat Comment: Physician Instructions: postop TKA protocol Consult to Respiratory Therapy Evaluate & Treat Comment: COPD Physician Instructions: Evaluate and treat Discharge provider: Robert Moseley PA-C Summary Hospital Course Discharge Diagnosis: Right knee DJD Hospital Course: Patient admitted to the hospital for right knee replacement. Patient consented to the same.Pre-op diagnosis: Right knee osteoarthritis Post-op diagnosis: same Procedure & Clinicians Procedure: Right total knee replacement Same procedure as scheduled: Yes Indications: The patient has had progressively worsening right knee pain with radiographic changes consistent with arthritis. Non-operative management has failed and the patient has requested total knee replacement. The risks, benefits and alternatives to surgery were discussed with the patient prior to proceeding. Risks discussed included, but were not limited to, failure to relieve pain, stiffness, infection, nerve damage, deep venous thrombosis, pulmonary embolism, stroke, coma, heart attack, permanent paralysis and , as well as the potential need for eventual revision of the prosthetic. Surgeon: Phil Sloan Lead Java Developer Architect: Reema Hernández Click Yes if Unassisted: No Anesthesia Type: General, Spinal and Local Operative Notes Findings: Severe tricompartmental osteoarthritis Closure Type: primary Specimen(s): none sent Prosthetic devices, grafts, tissues, transplants, or devices: Implants used in this procedure were manufactured by the [employer] and [employer] and included the BCS II Journey total knee replacement with a size 5 right cobalt chromium femoral component, a size 4 right non porous tibial base plate, a 9 mm cross-linked polyethylene tibial insert and a 35 mm oval Evy II patella. Applied: implant(s) Estimated Blood Loss (mL): 25 Blood products transfused: none Tourniquet time (min): 55 Patient admitted to the hospital for right total knee arthroplasty. Patient consented to the same. Patient taken to operating room underwent right total knee arthroplasty. Patient has progressed as expected. She'll be discharged home today in stable condition. Status at Discharge Cognitive/behavioral status at discharge: at baseline, oriented Functional status at discharge: uses cane/walker Overall status at discharge: patient is progressing back to baseline Time Spent with Patient Time spent: Less than 30 minutes Exam Vital Signs (past 8 hours): - 10/02/19 06:00 10/02/19 07:25 Temperature 96.8 F L 98.6 F Pulse Rate 75 89 Respiratory Rate 16 18 Blood Pressure 139/77 128/71 Pulse Oximetry 99 90 L Oxygen Delivery Method Nasal Cannula Oxygen Flow Rate 0 Narrative Exam Narrative: See progress note Objective Labs Result Diagrams: 10/01/19 06:55 Discharge Plan Discharge Plan Patient Disposition: Home Discharge orders & Medications Prescriptions: Continued atorvastatin 20 mg Tablet 20 mg PO QPM RF: 0 Travatan Z 0.004 % Drops 1 drp EYE-BOTH BEDTIME RF: 0 levothyroxine 50 mcg Tablet 50 mcg PO DAILY RF: 0 timolol 0.5 % Drops 1 drp EYE-BOTH BID RF: 0 buspirone 10 mg Tablet 10 mg PO QAM RF: 0 buspirone 10 mg Tablet 20 mg PO QPM RF: 0 omeprazole 20 mg Capsule,Delayed Release(Dr/Ec) 20 mg PO QPM RF: 0 mirtazapine 15 mg Tablet 7.5 mg PO BEDTIME PRN (Reason: Sleep) RF: 0 lorazepam 1 mg Tablet 1 mg PO BID PRN (Reason: Anxiety) RF: 0 escitalopram oxalate 20 mg Tablet 20 mg PO DAILY RF: 0 valsartan 40 mg Tablet 40 mg PO QPM RF: 0 metoprolol tartrate 25 mg Tablet 25 mg PO BID RF: 0 Xarelto 20 mg Tablet 20 mg PO QPM RF: 0 Follow up/Referrals: Phil Sloan MD [Physician] - Diet/Activity/Treatments Diet: Regular Activity: weight bearing as tolerated. follow salazar path protocol Skin/Wound/Dressing Care Report to your healthcare provider any signs of infection, such as:: chills, fever, increased pain, unusual drainage and unusual redness Dressing: keep dressing dry. dont soak (e.g. bath) Visit Report/Discharge Packet Instructions: DI for Knee Replacement, DI for Constipation, How to Prevent Falls, DI for Postoperative Pain, DI for Prescription Opioid Use, Oxycodone Stand Alone Forms: Surgery Discharge
--- NOTE | 2019-10-02 12:48 | PC.NURSE ---
Discharge: Pt feels ready to d/c home. Seen by PT and given their final instructions. Seen by PA-C and received their instructions. Reviewed wound care and safety. Pt did have a bm prior to leaving. Spouse is at bedside and was here for instructions. Reviewed d/c packet. Already has rx at home. Questions answered. Pt d/c home via auto w/spouse.
== END 2019-10-02 11:00 | disposition home or self-care (01) | DRG 470 ==
PROVIDERS: Admitting Provider Orthopaedic Surgery; Visit Provider Orthopaedic Surgery
PROC: 0SRC0JZ Replacement of Right Knee Joint with Synthetic Substitute, Open Approach (ICD-10-PCS; CPT 27447; principal; 2019-09-30 07:45)
DX: M17.11 Unilateral primary osteoarthritis, right knee (principal); Z68.41 Body mass index [BMI] 40.0-44.9, adult; E03.9 Hypothyroidism, unspecified; E66.9 Obesity, unspecified; I10 Essential (primary) hypertension; F32.9 Major depressive disorder, single episode, unspecified; I25.10 Atherosclerotic heart disease of native coronary artery without angina pectoris; K21.9 Gastro-esophageal reflux disease without esophagitis; J44.9 Chronic obstructive pulmonary disease, unspecified; Z87.891 Personal history of nicotine dependence; Z86.711 Personal history of pulmonary embolism; Z79.01 Long term (current) use of anticoagulants
CPT/HCPCS: 36415; 73560; 85014; 85018; 94762; 97110; 97116; 97161; 97530; C1776; C9290; J0690; J1100; J2250; J2270; J2274; J2405; J2704; J3010

== ENCOUNTER → 2021-06-25 09:27 | Outpatient (CLI) | payer MEDICARE, BC, OTHER, SELFPAY ==
[2019-09-30 11:19] VITALS: BMI 44.4
[2021-06-25 12:05] LABS: COVID19 -Nasal RAPID Negative (Negative)
== END ==
PROVIDERS: Referring Provider Nurse Practitioner; Visit Provider Nurse Practitioner
DX: Z20.822 Contact with and (suspected) exposure to COVID-19 (principal)
CPT/HCPCS: 87635; C9803

== ENCOUNTER 2021-06-29 08:47 | Observation (INO) | payer MEDICARE, BC, OTHER, SELFPAY ==
[2019-09-30 11:19] VITALS: BMI 44.4
[2021-06-25 11:02] VITALS: BMI 48.6
[2021-06-28] VITALS (16 sets, daily range): BP systolic 128–167; BP diastolic 58–92; PULSE 73–97; RESP 14–20; TEMP 35.7–36.8; O2SAT 88–96; BMI 48.6
--- NOTE | 2021-06-28 10:11 | DI.RAD.S_ITS ---
PROCEDURE: XR KNEE LT 1TO2V INDICATIONS: post op total knee TECHNIQUE: 2 view(s) of the knee acquired. COMPARISON: [facility], CR, XR KNEE RT 1TO2V, 09/30/2019, 10:38. FINDINGS: Bones: Patient is status post knee joint arthroplasty. Hardware components are in expected positions. Visualized bony structures are intact. Soft tissues: Overlying postoperative changes are noted. IMPRESSION: No significant abnormality. Dictated by: Ever Rodriguez M.D. on 06/28/2021 at 15:32 Approved by: Ever Rodriguez M.D. on 06/28/2021 at 15:34
[2021-06-28] MEDS: PREGABALIN 75 MG CAPSULE PO (10:45)
[2021-06-28] MEDS: LACTATED RINGERS 1,000 ML 42 ML IV (10:45)
[2021-06-28] MEDS: ACETAMINOPHEN 325 MG TABLET 975 MG PO (10:45)
--- NOTE | 2021-06-28 12:06 | PM.PREOP ---
Pre-operative Note COVID-19 COVID-19 status: Negative Result date/Date tested (Pos, Neg/Pending): 06/25/21 Interval Note History & Physical reviewed/Exam performed by Physician: Yes Changes to H&P: No
[2021-06-28] MEDS: CEFAZOLIN 1 GM VIAL 2 GM IV (13:04)
--- NOTE | 2021-06-28 13:14 | SUR.OPER ---
Supine on padded OR bed. Pillow under head, arms secured on padded armboards <90 degree abduction. Safety belt across torso. Non-operative leg secured with tape over blanket over lower leg. Operative leg secured in DeMayo positioner.
[2021-06-28] MEDS: TRANEXAMIC ACID 1,000 MG VIAL 1000 MG INJ ×2 (13:16→14:08)
[2021-06-28] MEDS: BUPIVACAINE LIPOSOME 266 MG/20 ML VIAL INJ (13:25)
[2021-06-28] MEDS: MORPHINE 4 MG/ML INJ INJ (13:27)
[2021-06-28] MEDS: BUPIVACAINE 0.25% (PF) VIAL 60 ML INJ (13:29)
[2021-06-28] MEDS: EPINEPHrine 1 MG/ML 0.3 MG INJ (13:30)
--- NOTE | 2021-06-28 14:57 | P.OP_ITS ---
Operative Date/Time/Diagnoses Date of procedure: 06/28/21 Time of procedure: 14:57 Pre-op diagnosis: Left knee osteoarthritis Post-op diagnosis: same Procedure & Clinicians Procedure: Left total knee replacement Same procedure as scheduled: Yes Indications: The patient has had progressively worsening left knee pain with radiographic changes consistent with arthritis. Non-operative management has failed and the patient has requested total knee replacement. The risks, benefits and alternatives to surgery were discussed with the patient prior to proceeding. Risks discussed included, but were not limited to, failure to relieve pain, stiffness, infection, nerve damage, deep venous thrombosis, pulmonary embolism, stroke, coma, heart attack, permanent paralysis and , as well as the potential need for eventual revision of the prosthetic. Surgeon: Phil Sloan Inventory Assistant: Mindy Oscar Click Yes if Unassisted: No Anesthesia Type: General, Spinal and Local Operative Notes Findings: Severe tricompartmental osteoarthritis Closure Type: primary Specimen(s): none sent Prosthetic devices, grafts, tissues, transplants, or devices: Implants used in this procedure were manufactured by the [employer] and included the BCS II Journey total knee replacement with a size 5 left cobalt chromium femoral component, a size 4 left non porous tibial base plate, a 12 mm cross-linked polyethylene tibial insert and a 35 mm oval Evy II patella. Applied: implant(s) Estimated Blood Loss (mL): 25 Blood products transfused: none Tourniquet time (min): 50 Procedure in detail: The patient was seen in the pre-operative area, where the left knee was identified as the operative site and this was marked with my initials. The patient received pre-operative antibiotics, and was taken to the operating room and placed on the operative table in the supine position. After satisfactory anesthesia, a keymodule assembly supervisor out was performed. The left leg was encircled with a tourniquet about the proximal thigh, and the leg was prepared from the toes to the tourniquet with ChloroPrep in the usual fashion and draped through sterile drapes. The leg was elevated and exsanguinated with Eschmark bandage and the tourniquet inflated to 250 mmHg pressure. The knee was approached through an approximately 18 cm incision centered over th e patella and carried into the knee through a medial parapatellar arthrotomy. The anterior osteophytes and soft tissues were removed. The rotational landmarks of [place]'s line and the transepicondylar axis were marked on the femur with electrocautery, and intramedullary guide holes for the femur and tibia were created. The distal femoral cut was made in 6 degrees of valgus using the intramedullary guide at the primary cut setting. The proximal tibial cut was then made using the intramedullary guide, taking 9 mm of bone off the less involved side. The extension gap was checked and the rotation of the femoral component confirmed with the gap balancing blocks. The anterior, posterior and chamfer cuts were then made. The posterior osteophytes and soft tissues were then removed. The posterior capsule was injected with part of a mixture of 60 ml 0.25% Marcaine mixed with 20 ml Exparel and 4 mg of morphine for post-operative pain control. The remainder of this mixture was injected into the capsule and subcutaneous tissues during cement curing. The tibia was prepared with the rotation set by an extra medullary guide. Trial tibial and femoral components were then placed and the intercondylar notch cut through the femoral trial. Range of motion was 0-110 degrees with further flexion being limited by the patient's obesity, with good stability throughout the range. The patella was then cut to accommodate the patellar prosthetic. There was no need for a lateral release. The trials were then removed, and the femoral hole plugged with a bone plug. The bone was prepared with pulsatile lavage, and dried with a sponge. Cement was applied and the final prosthetics placed. Excess cement was removed during and after cement curing. After confirming there was no extruded cement posteriorly, the final tibial insert was placed. The knee was copiously irrigated and the tourniquet deflated. Hemostasis was obtained. The capsule was closed with interrupted # 2 polyester sutures. The subcutaneous layer was closed with 3-0 Vicryl, and the skin with a running 3-0 V-Lock suture and Dermabond. A John dressing was applied and the patient was taken to recovery having tolerated the procedure well. Complications: none Post-operative Condition: stable Disposition: PACU Plan for aftercare: The patient will be maintained on a standard total knee replacement protocol with weight bearing as tolerated. The patient will receive aspirin and sequential compression devices for DVT prophylaxis. The patient will be discharged home when safe for the home environment.
[2021-06-28] MEDS: LACTATED RINGERS 1,000 ML 100 ML IV (15:37)
[2021-06-28] MEDS: RIVAROXABAN 10 MG TABLET 20 MG PO (16:54)
[2021-06-28] MEDS: HYDROMORPHONE 2 MG TABLET PO ×2 (16:54→20:51)
[2021-06-28] MEDS: ATORVASTATIN 20 MG TABLET PO (16:54)
--- NOTE | 2021-06-28 19:07 | PC.NURSE ---
Addendum entered by Janina Ingram R.N. 06/28/21 21:30: Satisfactory post op course. CBG HS = 120, no coverage required. Dsg remains CDI IVF infusing as per orders w/o incidence. Call light w/in reach, bed alarm on for pt safety. Continue w/plan of care. Original Note: Pt arrived from PACU @ 1515 A/O awake, Lungs clear, SpO2 96% RA On continuous pulse ox till 0315 Dsg to left knee librado/aquacell CDI Stable post op course. Call light w/in reach, bed alarm on for pt safety.
[2021-06-28] MEDS: ALBUTEROL/IPRATROPIUM 3 ML AMPUL INH ×2 (20:27→23:35)
[2021-06-28] MEDS: BUDESONIDE 0.5 MG/2 ML NEB INH (20:27)
[2021-06-28] MEDS: TIMOLOL 0.5% OPHTH 1 DROPS EYE-BOTH (20:40)
[2021-06-28] MEDS: PANTOPRAZOLE DR 20 MG TABLET PO (20:51)
[2021-06-28] MEDS: DOCUSATE 100 MG CAPSULE PO (20:54)
[2021-06-28] MEDS: OXYCODONE IR 10 MG TABLET PO (23:33)
[2021-06-29] VITALS: BP 136/72; PULSE 99; RESP 18; TEMP 36.1; O2SAT 97
[2021-06-29] MEDS: LACTATED RINGERS 1,000 ML 100 ML IV (01:02)
[2021-06-29] MEDS: OXYCODONE IR 10 MG TABLET PO (04:18)
[2021-06-29 04:33] VITALS: BP 142/81; PULSE 104; RESP 20; TEMP 36.8; O2SAT 92
[2021-06-29] MEDS: LEVOTHYROXINE 50 MCG TABLET PO (06:16)
[2021-06-29 06:26] LABS: Hematocrit 44.1 % (36-46)
--- NOTE | 2021-06-29 07:40 | P.DS_ITS ---
History of Present Illness History of Present Illness Date Patient Seen: 06/29/21 Time Patient Seen: 07:40 Chief complaint: LT TKA 07/05 Narrative: The history and physical is contained in the chart previously completed note. Please refer to that note for this information. Discharge Providers Provider Date of admission: June 28, 2021 Discharge Date: 06/29/21 Primary care physician: Fransico Sainz MD Consults: 06/28/21 15:27 Consult to Discharge Planning Routine Comment: Consult to Physical Therapy Evaluate & Treat Comment: Physician Instructions: postop TKA protocol Consult to Respiratory Therapy Evaluate & Treat Comment: Physician Instructions: Evaluate and treat Discharge provider: Phil Sloan MD Summary Hospital Course Discharge Diagnosis: Left knee osteoarthritis Hospital Course: Patient was admitted to the hospital and taken directly to the operating room on June 28, 2021 where she underwent a left total knee replacement without complications. On postoperative day 1 she had good pain co ntrol. It is anticipated she will be able to discharge later today after physical therapy. Status at Discharge Cognitive/behavioral status at discharge: at baseline, oriented Functional status at discharge: uses cane/walker Overall status at discharge: patient is progressing back to baseline Time Spent with Patient Time spent: Less than 30 minutes Exam Vital Signs (past 8 hours): - 06/29/21 00:00 06/29/21 04:33 Temperature 97.0 F L 98.2 F Pulse Rate 99 H 104 H Respiratory Rate 18 20 Blood Pressure 136/72 142/81 H Pulse Oximetry 97 92 Oxygen Delivery Method Nasal Cannula Oxygen Flow Rate 3 Narrative Exam Narrative: Left knee wound is dressed with no drainage on the bandage. Calf is soft. Light touch and motion are intact in the left lower extremity. Objective Labs Result Diagrams: 06/29/21 05:28 Labs: Laboratory Results - last 24 hr 06/29/21 05:28 Hgb 14.0 Hct 44.1 [facility] Medical History (Updated 06/25/21 @ 11:[address] RN) Anxiety CAD (coronary artery disease) Colon polyps COPD (chronic obstructive pulmonary disease) CVA (cerebral vascular accident) (~1976) Cyst (~1958) Depression Diabetes Diverticulitis of intestine with perforation GERD (gastroesophageal reflux disease) Glaucoma H/O coronary angiogram HLD (hyperlipidemia) HTN (hypertension) Hypothyroid IBS (irritable bowel syndrome) Myocardial infarction (~2004) Osteoarthritis Pulmonary embolism, bilateral (~12/2014) RLS (restless legs syndrome) Surgical History (Updated 09/20/19 @ 13:[address] RN) H/O: hysterectomy History of colostomy (~12/2014) Hx of cholecystectomy Social History household members: spouse Smoking Status: Former smoker alcohol intake: former Discharge Assessment & Plan Assessment and Plan Assessment: Stable postoperative day 1 status post left total knee replacement. The patient has an attentive spouse at home and has previously had her right total knee. We anticipate she will be able to discharge later today however given her age and obesity it is possible she may need additional time and the discharge order will be rescinded. Plan of Treatment: Physical therapy today likely discharge home today. Discharge prescriptions for oxycodone have been sent to the pharmacy. She is on Xarelto for her DVT prophylaxis due to her prior history of a DVT. Follow-up will be in my office in 10-14 days. Discharge Plan Discharge Plan Patient Disposition: Home Discharge orders & Medications Discharge Orders: Discharge (Order); Ordered 06/29/21 Ordered By: Phil Sloan Prescriptions: New oxycodone 5 mg Tablet 5 mg PO Q4H PRN (Reason: Pain, Moderate (4-6)) Qty: 40 RF: 0 Continued atorvastatin 20 mg Tablet 20 mg PO QPM RF: 0 travoprost [Travatan Z] 0.004 % Drops 1 drp EYE-BOTH BEDTIME RF: 0 levothyroxine 50 mcg Tablet 50 mcg PO DAILY RF: 0 timolol 0.5 % Drops 1 drp EYE-BOTH BID RF: 0 buspirone 10 mg Tablet 10 mg PO QAM RF: 0 buspirone 10 mg Tablet 20 mg PO QPM RF: 0 omeprazole 20 mg Capsule,Delayed Release(Dr/Ec) 20 mg PO QPM RF: 0 mirtazapine 15 mg Tablet 7.5 mg PO BEDTIME PRN (Reason: Sleep) RF: 0 lorazepam 1 mg Tablet 1 mg PO BID PRN (Reason: Anxiety) RF: 0 escitalopram oxalate 20 mg Tablet 20 mg PO DAILY RF: 0 Xarelto 20 mg Tablet 20 mg PO QPM RF: 0 fluticasone propion-salmeterol 250-50 mcg/dose Blister With Device 1 inh INHALATION BID RF: 0 metoprolol succinate 50 mg Tablet Extended Release 24 Hr 50 mg PO DAILY RF: 0 spironolactone 25 mg Tablet 25 mg PO DAILY RF: 0 albuterol sulfate 90 mcg/actuation Hfa Aerosol Inhaler 2 puff INHALATION Q6H PRN (Reason: Shortness Of Breath) RF: 0 acetaminophen 500 mg Capsule 1,000 mg PO Q8H PRN (Reason: Pain) RF: 0 Spiriva with HandiHaler 18 mcg Capsule, W/Inhalation Device 1 cap INHALATION DAILY RF: 0 Follow up/Referrals: Fransico Sainz MD [Primary Care Provider] - Phil Sloan MD [Physician] - 2 Weeks Diet/Activity/Treatments Diet: Diet as Tolerated and Regular Activity: You may bear weight as tolerated on your left leg. Cold/Heat Therapy: Apply ice for 15 minutes of every hour as needed to the left knee for pain control. Skin/Wound/Dressing Care Report to your healthcare provider any signs of infection, such as:: chills, fever, night sweats, increased pain, unusual drainage and unusual redness Dressing: You may remove the Mak wrap in 3 days and shower normally. Remove the battery pack from the deep dressing before showering. Visit Report/Discharge Packet Instructions: DI for Knee Replacement Stand Alone Forms: [facility] VIV Drain, Surgery Discharge Discharge Data Primary Care Provider: Fransico Sainz Attending Provider: Phil Sloan
[2021-06-29 08:00] VITALS: BP 142/68; PULSE 97; RESP 18; TEMP 36.6; O2SAT 94
[2021-06-29] MEDS: ALBUTEROL/IPRATROPIUM 3 ML AMPUL INH (09:00)
[2021-06-29] MEDS: BUDESONIDE 0.5 MG/2 ML NEB INH (09:00)
[2021-06-29] MEDS: DOCUSATE 100 MG CAPSULE PO (09:12)
[2021-06-29] MEDS: ESCITALOPRAM 10 MG TABLET 20 MG PO (09:12)
[2021-06-29 09:13] VITALS: BP 142/68; PULSE 97
[2021-06-29] MEDS: SPIRONOLACTONE 25 MG TABLET PO (09:13)
[2021-06-29] MEDS: BUSPIRONE 5 MG TABLET 10 MG PO (09:13)
[2021-06-29] MEDS: METOPROLOL ER 50 MG TABLET PO (09:13)
[2021-06-29] MEDS: HYDROMORPHONE 2 MG TABLET PO ×2 (09:14→12:20)
[2021-06-29] MEDS: TIMOLOL 0.5% OPHTH 1 DROPS EYE-BOTH (09:17)
[2021-06-29 09:34] VITALS: PULSE 100; O2SAT 93
--- NOTE | 2021-06-29 10:26 | PT.IIE ---
Current Diagnoses Unilateral primary osteoarthritis, left knee (06/29/21) Surgery Performed Operation Date: 06/28/21 12:15 Actual Procedures p Total Knee Arthroplasty(Left) - Phil Sloan MD Medical History (Last Updated 06/25/21 @ 11:[address] RN) Anxiety CAD (coronary artery disease) Colon polyps COPD (chronic obstructive pulmonary disease) CVA (cerebral vascular accident) (~1976) Cyst (~1958) Depression Diabetes Diverticulitis of intestine with perforation GERD (gastroesophageal reflux disease) Glaucoma H/O coronary angiogram HLD (hyperlipidemia) HTN (hypertension) Hypothyroid IBS (irritable bowel syndrome) Myocardial infarction (~2004) Osteoarthritis Pulmonary embolism, bilateral (~12/2014) RLS (restless legs syndrome) Physical Therapy Inpatient Evaluation/Re-Eval M1 PT/OT-IP Prior Functional Status Start: 06/29/21 08:39 Freq: NEEDED Status: Active Protocol: Document 06/29/21 10:26 AW (Rec: 06/29/21 11:49 AW [id number]) Medical Review Prior Functional Status Medical History Reviewed Yes Communication WNL. Pt is an effective verbal communicator. Mobility and Gait Pt is independent without AD for household ambulation. She had R TKA in September 2019 and did limited rehab afterward. She reports walking up to a half block at a time but is limited due to shortness of breath with history of COPD. She does not typically use supplemental O2. Activities of Daily Living and IADL's Pt's assist with some LB dressing tasks. He assists her in and out of the shower but she does her own washing and drying. She is independent with toileting tasks. Social History Household Members spouse Living Arrangements House Number of Floors (Floors) Two Floors Number of Stairs To Enter/Railing? Short threshhold at entrance. Pt stays on the main level. Home Environment Standard Height Toilet,Walk in Shower Home Equipment Front Wheel Walker,Four Wheel Walker,Straight Cane,Raised Toilet Seat w/Armrests,Shower Seat with Backrest,Lift Recliner Employment Status Retired Additional Social History Comment Pt has an adjustable bed. No grab bars in the bathroom but there is a sink on the left side. Pt lives with her spouse , Usman, who is available and able to provide all assist at home. Her daughter, Gaye, lives in [place] but works and will not be available to assist. M2 PT-IP Current Condition Start: 06/29/21 08:39 Freq: NEEDED Status: Active Protocol: Document 06/29/21 10:26 AW (Rec: 06/29/21 11:49 AW [id number]) Physical Therapy Current Condition Current Condition Evaluation Date 06/29/21 Treatment Diagnosis L TKA; difficulty in walking Onset Date 06/28/21 M3 PT-IP Subjective Start: 06/29/21 08:39 Freq: NEEDED Status: Active Protocol: Document 06/29/21 10:26 AW (Rec: 06/29/21 11:49 AW [id number]) Subjective Physical Therapy Visit Type Type Initial Evaluation Visit Start Time 09:51 Visit Stop Time 10:26 Total Visit Minutes 35 Number of PROOFING MACHINE OPERATOR Visits 0 Physical Therapy Visit Comments Patient Comments Pt is willing to participate with PT Patient Goals Hopes to go home today Therapy Pain Assessment Pain When Pain Assessed During Mobility Pain Present Pain Present Pain Reported Location right knee Intensity 8 Scale Used Numeric (0 - 10) Pain Management Techniques Elevation,Modification of Treatment,Timing of Activity with Medications M4 PT-IP Mobility and Gait Start: 06/29/21 08:39 Freq: NEEDED Status: Active Protocol: Document 06/29/21 10:26 AW (Rec: 06/29/21 11:49 AW [id number]) PT-Bed Mobility Assessment Sit to Supine Sit to Supine Minimal Assistance,Moderate Assistance,1 Person Assistance PT-Transfer Assessment Sit to and From Stand Sit to and from Stand Contact Guard Assistance,1 Person Assistance,2 Person Assistance Equipment Transfer Assistive Device Gait Belt,Front Wheeled Walker Orthotic/Prosthetic Devices or Brace: No Transfers Transfer Destination Bed,Bedside Commode Transfer Technique Stand Step Pivot Transfer Ability Level of Assist Contact Guard Assistance Comments Mobility Comments Pt was sitting up in the chair as PT arrived. She requested to use the commode. SpO2 was 92% at rest on 2.5L O2. She scooted forward and stood CGA, using FWW to step pivot transfer to the [facility]. She called out in pain as her knee flexed. PT provided cushion to support her left foot which was more comfortable. She voided and then stood to complete pericare without assist using FWW prn for support. She was able to pull up her briefs but complained of increased pain in standing. She ambulated around the bed with FWW CGA with SOB apparent after 5 feet ambulation. She requested to sit on the bed and then to lie down. She needed min/mod assist for sit to supine to elevate her legs to the bed. Pt sleeps in her lift recliner at home. SpO2 was 94% during activity and returned to 89-92% in the minutes following return to supine. Gait Assessment Gait Gait Assistance Required: Contact Guard Assist Distance (Feet) 15 Able to Maintain Weight Bearing Status Yes During Gait Assistive Devices Assistive Device Gait Belt,Front Wheeled Walker Orthotic/Prosthetic Devices or Brace: No Gait Deviations General Gait Pattern Antalgic,Decreased Stride Length,Decreased Feet Clearance,Flexed Trunk,Step-to Gait,Wide Based Gait Factors Limiting Gait Function Factors Limiting Gait Function Decreased Activity Tolerance, Decreased Strength,Limited Range of Motion,Pain,Poor Balance,Respiratory Distress Comments Gait Comments Pt ambulated using FWW and wide DAVID CGA. She was limited by SOB and left knee pain. Stair Climbing Assessment Comments Stair Climbing Comments Not assessed. Pt's spouse states she can either go up a short threshhold at home with FWW or he can sit her on 4WW and push her around the house to a level entrance. PT-Balance Assessment Sitting Balance and Reactions Static Sitting Balance Ability Good Dynamic Sitting Balance Ability Good Standing Balance and Reactions Static Standing Balance Ability Fair Dynamic Standing Balance Ability Fair Device Used FWW M5 PT-IP Objective Assessments Start: 06/29/21 08:39 Freq: NEEDED Status: Active Protocol: Document 06/29/21 10:26 AW (Rec: 06/29/21 11:49 AW [id number]) Orientation Orientation/Cognition Level of Alertness Alert Orientation Name,Day of Week,Place, Situation Language Function Ability No Deficits Noted Safety Awareness Understands Safety Issues Memory Description No Deficits Noted Gross Range of Motion Lower Extremity ROM Assessment Left Impaired Strength Lower Extremity Strength Assessment Bilaterally Impaired Hip B 4-/5 Knee R 4/5; L 3/5 Ankle B 4-/5 Sensation Assessment Sensation Gross Sensation WNL M6 PT-IP Treatment Start: 06/29/21 08:39 Freq: NEEDED Status: Active Protocol: Document 06/29/21 10:26 AW (Rec: 06/29/21 11:49 AW [id number]) Physical Therapy Treatment Exercises Exercises Ankle Pumps,Gluteal Sets,Heel Slides Education Education Provided Weight Bearing Status,Post-Op Packet,Safety Other Treatments Other Treatment Performed Educated pt on importance of ROM focus in early stages of rehab and benefits of short but regular bouts of activity to maintain strength and build mobility independence. M7 PT-IP Assessment and Plan Start: 06/29/21 08:39 Freq: NEEDED Status: Active Protocol: Document 06/29/21 10:26 AW (Rec: 06/29/21 11:49 AW [id number]) PT Summary Assessment and Plan Potential Rehabilitation Potential Fair Status of Condition at Evaluation Stable Summary Impairments Pain,ROM,Strength,Balance,Bed Mobility,Transfers,Gait, Activity Tolerance Assessment Summary Jenny is an 80 yo woman seen for PT evaluation on POD1 following L TKA. She describes herself as sedentary but typically ambulates in her home without assistive device. She is limited in community ambulation by SOB due to history of COPD and general deconditioning. On evaluation. Jenny required CGA for short distance ambulation and transfers, min/mod assist for bed mobility. She sleeps in a lift recliner at home. PT anticipates she will meet the functional goals of this plan of care and be safe to discharge home with spouse assist and outpatient PT once medically stable. Goals Bed Mobility Goal Contact Guard Assistance Transfer Goal Standby Assistance,Front Wheeled Walker Gait Goal Standby Assistance,Front Wheel Walker Gait Distance 100 Other Goals - up/down platform step with FWW CGA for safe entry to home . Days to Meet Goals 2 Frequency of Treatment Frequency Of Treatment Twice a Day Treatment Plan Physical Therapy Treatment Plan Bed Mobility Training,Transfer Training,Gait Training, Therapeutic Exercise,Balance Retraining,Post Op Education, Discharge Planning,Hot or Cold Pack Other Recommendations and Next Treatment progress gait distance, assess Focus safety with platform step; review ther ex for ROM Weight Bearing Status Weight Bearing Status Weight Bear as Tolerated Allowed Weight Bearing Amount (enter % WBAT LLE or #) (%) Recommendations To Nursing Amount of Assist Needed 1 Person Assist Discharge Recommendations PT Discharge Recommendations Home with Assistance, Outpatient PT Transportation Needs at Discharge Private Vehicle
--- NOTE | 2021-06-29 11:13 | CM.DANOTE ---
DCP: Case received, EMR reviewed and met with patient. Introduced self and role. Was able to obtain information regarding patient's baseline activity status prior to her surgery. DCP assessment completed with information currently available. Patient is an 80 year old female who admitted yesterday morning to the care of the orthopedic team. PCP: Dr. Sainz. Payer: confirmed: Medicare/[employer] [facility]. Patient came to the hospital for a surgical procedure. She had a left total knee replacement. Patient has history of left knee osteoarthritis. Met with patient in her room. She was sitting up in her chair, she is currently on oxygen. Patient is alert and oriented. She indicated that she is independent at her baseline, and confirmed that she lives in [place] with her spouse, Ashvin. She has two sons that live back east, one in [place], and the other in [place]. [place] has been living here since the early . Confirmed with her that her spouse should be able to help her out when she goes home. P: DCP to continue to follow. Patient was supposed to go home today, but will depend upon her oxygen sats. Judy Merrill RN/Gasoline Engine Inspector Discharge Planning/Care Management Advanced directive, confirm from FAMILY Start: 06/28/21 16:12 Freq: Q24H Status: Active Protocol: Document 06/28/21 16:12 KMD (Rec: 06/28/21 18:49 KMD [id number]) Advance Directive, confirm on record Time 18:49 Person contacted Patient Copy received No CM Discharge Assessment Start: 06/29/21 11:07 Freq: Status: Active Protocol: Document 06/29/21 11:08 (Rec: 06/29/21 11:11 [id number]) Discharge Planning Assessment Assigned Steel Tier Judy Merrill RN/Gasoline Engine Inspector Advance Directives? Yes Advance Directives on File No History Provided By Patient,Medical Record Prior Living Arrangements House Household Members spouse Type of transporation used prior to Drives own vehicle admit Independent with ADL's Yes Is patient alert and oriented? Yes Caregiver for Another No Patient/Family Preference OP PT Therapy Barriers to Discharge No Discharge Plan Home Transportation Arrangement Family to provide transport home. Referrals Initiated None needed Whiteboard Updated in Patient Room with Yes name and ext. # of Steel Tier Review Status In Process Next Review Type Continued Stay Review Pre-Anesthesia Assessment Start: 06/25/21 11:02 Freq: Status: Active Protocol: Document 06/25/21 11:02 [facility] (Rec: 06/25/21 11:11 [facility] [id number]) Pre-Anesthesia Assessment Patient Information Reviewed Via Chart Review,Phone Assessment Comment Partial phone assessment w/ spouse Comment Outside labs/EKG scanned, COVID screen @ [facility] 06/25/21 Primary Care Provider Fransico Sainz Seen Specialist in Last 12 Months Yes Specialist Seen Orthopedist Primary Language Upper Sorbian Preferred Language Upper Sorbian Cloth Painter Required No Height 5 ft Weight 249 lb Body Mass Index (BMI) 48.6 Other Aids No Hx Anesthesia Reactions No Hx Family Anesthesia Reaction No Hx Malignant Hyperthermia No Hx Blood Transfusions Yes: unsure, thinks w/ perforated diverticulitis 2014 alcohol intake former Alcohol Intake Frequency Other: Stopped r/t medications Smoking Status Former smoker Tobacco type cigarettes how long ago did patient quit smoking Quit 1977 Substance Use Type does not use Pain Present Pain Reported Musculoskeletal Symptoms Abnormal Gait,Difficulty Walking,Joint Pain History of Falling (Recent or History of No ) Patient is completely paralyzed or No completely immobile Mental Status Oriented to own ability Is patient on oxygen? No Does patient have RYAN/SOB No Hx Sleep Apnea No CPAP/BIPAP use not prescribed Currently Taking a Beta Natasha Yes: Metoprolol Can You Climb a Flight of Stairs Without No SOB Hx Chest Pain No Hx SOB Yes: 2014 r/t PE, none since Hx Syncope or Dizziness No Anti-Coagulant Therapy Yes: Xarelto-states she stopped 06/25/21 Has a Case Operator Yes: Dr. Hudson Hx Pacemaker/ICD No Pacemaker Rep Required? No Cardiac Clearance Received Not Applicable Diet Type At Home Regular dysphagia Yes: Yes: Occasionally w/ solids Bladder Pattern Frequency Urinary Catheter Present No Hx Urinary Self Catheterization No Diabetes Yes HgbA1C 7.0 Date 06/21/21 Patient No Lactating No Hx Drug Resistant Organism No Presence of External or Internal Medical Yes: Right knee Devices Received a COVID vaccine? Yes Received all doses? Yes Marital Status Lives With spouse Prior Living Arrangements House Number of Floors (Floors) Two Floors Patient Discharge Plan Description Return Home Feels Safe in Current Environment Yes Been Physically Hurt or Threatened By a No Person in Current Environment Do you have thoughts of harming yourself None or others? Are you currently considering suicide? No Do you have a plan to hurt yourself or No Plan others? Do You Have Any Spiritual Beliefs That No May Affect Your HC Choices? Do You Have Any Cultural Practices That No May Affect Your HC Choices? Health Care Proxy/Next of Kin Usman () Health Care Proxy Emergency Contact Name Ashvin Moseley Emergency Contact Advance Directives? No
[2021-06-29 12:00] VITALS: BP 143/59; PULSE 86; PULSE 88; RESP 20; TEMP 36.4; O2SAT 94
--- NOTE | 2021-06-29 13:43 | PT-IP ANOTE ---
Attempted to see pt at 13:43 to complete stair training, however pt refused and was in w/c anticipating d/c home w/ spouse to assist. Pt and spouse state they have no further needs or questions from PT.
--- NOTE | 2021-06-29 14:52 | PC.NURSE ---
Pt A&O x3, cleared for discharge this a.m. pending PT/OT eval. Per PT eval patient basically functioning per baseline. However she is requiring 02 at this time. RN left message with triage nurse for MD Sloan ordering home 02 for patient and clarifying if needing any more assessments. Per history patient discharged with home 02 and then weaned back of to RA, hx of COPD. Pt and verbalize understanding of discharge medications, follow up appointments,site care, activity, nicol care, worsening symtpoms and oxygen. SENIOR DATABASE ENGINEER escorted patient to private vehicle with and portable 02 at 1400 with all of her belongings.
== END 2021-06-29 14:00 | disposition home or self-care (01) ==
LOC: OR 08:54 → AC 08:54
PROVIDERS: Admitting Provider Orthopaedic Surgery; PCP Internal Medicine; Referring Provider Orthopaedic Surgery; Visit Provider Orthopaedic Surgery
PROC: 0SRD0JZ Replacement of Left Knee Joint with Synthetic Substitute, Open Approach (ICD-10-PCS; CPT 27447; principal; 2021-06-28 12:15)
DX: M17.12 Unilateral primary osteoarthritis, left knee (principal); I25.10 Atherosclerotic heart disease of native coronary artery without angina pectoris; J44.9 Chronic obstructive pulmonary disease, unspecified; K21.9 Gastro-esophageal reflux disease without esophagitis; I10 Essential (primary) hypertension; K58.9 Irritable bowel syndrome, unspecified; Z79.01 Long term (current) use of anticoagulants
CPT/HCPCS: 27447; 36415; 73560; 82962; 85014; 85018; 94618; 94640; 94762; 97162; 97530; C1776; G0378; C9290; J0171; J0690; J2250; J2270; J2274; J2405; J2704; J3010